=== PATIENT | male | born 1975 | race American Indian/Alaskan Native ===

== ENCOUNTER → 2017-06-29 | Outpatient (CLI) | payer MEDICARE | LOC: SLR 11:00 | PROVIDERS: ATTEND Nurse Practitioner Family | DX: G47.33 Obstructive sleep apnea (adult) (pediatric) (principal); I10 Essential (primary) hypertension; J44.9 Chronic obstructive pulmonary disease, unspecified | CPT/HCPCS: 95811 ==

== ENCOUNTER 2021-09-30 16:06 | Emergency (ER) | payer MEDICARE ==
[2021-09-30 17:31] VITALS: BP 174/100
--- NOTE | 2021-09-30 17:55 | Cat Scan Report ---
CT ABDOMEN AND PELVIS WITHOUT CONTRAST INDICATION / CLINICAL INFORMATION: abdominal pain. TECHNIQUE: Axial CT images were obtained through the abdomen and pelvis without IV contrast. All CT scans at this location are performed using CT dose reduction for ALARA by means of automated exposure control. COMPARISON: None available. FINDINGS: LOWER CHEST: Mild basilar atelectasis/scarring. LIVER: No significant abnormality. GALLBLADDER: No significant abnormality. BILE DUCTS: No significant abnormality. PANCREAS: No significant abnormality. SPLEEN: No significant abnormality. ADRENALS: No significant abnormality. RIGHT KIDNEY / URETER: Mild chronic adjacent inflammation. LEFT KIDNEY / URETER: Mild chronic adjacent inflammation. STOMACH / SMALL BOWEL: No significant abnormality. COLON: No significant abnormality. APPENDIX: No significant abnormality. PERITONEUM: No free fluid. No free air. No fluid collection. LYMPH NODES: No significant adenopathy. VASCULAR STRUCTURES: No significant abnormality. URINARY BLADDER: No significant abnormality. REPRODUCTIVE ORGANS: No significant abnormality. ADDITIONAL FINDINGS: Fat-containing umbilical hernia. Soft tissue anasarca. SKELETAL SYSTEM: No significant abnormality. IMPRESSION: 1. Negative for obstruction or localized inflammation. 2. Soft tissue anasarca. Signer Name: Jacinto Salgado MD Signed: 09/30/2021 5:50 PM Workstation Name: [id number]
--- NOTE | 2021-09-30 21:51 | Emergency Department Report ---
ED Abdominal Pain HPI - General Chief Complaint: Abdominal Pain Stated Complaint: ABDOMIANL PAIN Time Seen by Provider: 09/30/21 16:49 Source: EMS Mode of arrival: Ambulatory Limitations: No Limitations - History of Present Illness Initial Comments: 46-year-old patient with past medical history of hypertension diabetes hernia paranoid schizophrenia anxiety and depression presents to the emergency department for evaluation of 2-week history of abdominal pain. He states that he has a known history of a hernia but feels like it is poking out more than usual and giving him more pain. He denies nausea, vomiting, diarrhea, and fever. He does states that pain at its worst is 9 out of 10. Of note, upon entry into the room patient's first statement was that he was now homeless and needed a referral for supportive living. MD Complaint: abdominal pain -: Gradual, week(s) (2) Location: diffuse Radiation: none Severity: severe Severity scale (0 -10): 9 Quality: aching Associated Symptoms: denies: nausea, vomiting, diarrhea, fever, chills, constipation, dysuria, hematemesis, hematochezia, melena, hematuria - Related Data Home Medications Medication Instructions Recorded Confirmed Last Taken lisinopriL [Zestril TAB] 10 mg PO DAILY 01/05/16 03/08/16 03/08/16 traZODone [Desyrel] 100 mg PO QHS 03/08/16 03/08/16 Unknown Previous Rx's Medication Instructions Recorded Last Taken Type Gemfibrozil [Lopid] 600 mg PO DAILY #60 tablet 03/09/16 Unknown Rx Metformin HCl [Glucophage] 500 mg PO BID #90 tablet 03/09/16 Unknown Rx Paliperidone [Invega] 3 mg PO DAILY #30 tab.er.24 03/09/16 Unknown Rx fluPHENAZine HCl [fluPHENAZine] 10 mg PO DAILY #30 tablet 03/09/16 Unknown Rx Allergies Allergy/AdvReac Type Severity Reaction Status Date / Time chlorpromazine HCl Allergy Itching Verified 03/08/16 21:55 [From Thorazine] ED Review of Systems ROS: Stated complaint: ABDOMIANL PAIN Other details as noted in HPI Comment: All other systems reviewed and negative Constitutional: denies: chills, diaphoresis, fever Eyes: denies: eye pain, eye discharge ENT: denies: ear pain, throat pain, dental pain Respiratory: denies: cough, orthopnea, shortness of breath, SOB with exertion Cardiovascular: denies: chest pain, palpitations, dyspnea on exertion, orthopnea, edema, syncope Gastrointestinal: abdominal pain. denies: nausea, vomiting, diarrhea, constipation, hematemesis, melena, hematochezia Genitourinary: denies: urgency, dysuria, frequency, hematuria, discharge, testicular pain Musculoskeletal: denies: back pain, joint swelling, arthralgia, myalgia Skin: denies: rash, lesions Neurological: denies: headache, weakness, numbness, paresthesias, abnormal gait Psychiatric: denies: anxiety, depression Hematological/Lymphatic: denies: easy bleeding, easy bruising ED Past Medical Hx - Past Medical History Hx Hypertension: Yes Hx Diabetes: Yes Hx Psychiatric Treatment: Yes (schziphrenia/ADHD) Additional medical history: high chol - Social History Smoking Status: Current Every Day Smoker (1/3 pack per day) Substance Use Type: None - Medications Home Medications: Home Medications Medication Instructions Recorded Confirmed Last Taken Type lisinopriL [Zestril TAB] 10 mg PO DAILY 01/05/16 03/08/16 03/08/16 History traZODone [Desyrel] 100 mg PO QHS 03/08/16 03/08/16 Unknown History Gemfibrozil [Lopid] 600 mg PO DAILY #60 tablet 03/09/16 Unknown Rx Metformin HCl [Glucophage] 500 mg PO BID #90 tablet 03/09/16 Unknown Rx Paliperidone [Invega] 3 mg PO DAILY #30 tab.er.24 03/09/16 Unknown Rx fluPHENAZine HCl [fluPHENAZine] 10 mg PO DAILY #30 tablet 03/09/16 Unknown Rx ED Physical Exam - General Limitations: No Limitations General appearance: alert, in no apparent distress - Head Head exam: Present: atraumatic, normocephalic - Eye Eye exam: Present: normal appearance. Absent: conjunctival injection - Neck Neck exam: Present: normal inspection. Absent: tenderness - Respiratory Respiratory exam: Present: normal lung sounds bilaterally. Absent: respiratory distress, wheezes, rales, rhonchi, stridor, chest wall tenderness, accessory muscle use, decreased breath sounds - Cardiovascular Cardiovascular Exam: Present: regular rate, normal heart sounds - GI/Abdominal GI/Abdominal exam: Present: soft, tenderness, normal bowel sounds. Absent: distended, guarding (Generalized), rebound, rigid - Back Exam Back exam: Present: normal inspection, full ROM - Neurological Exam Neurological exam: Present: alert, oriented X3 - Psychiatric Psychiatric exam: Present: normal affect, normal mood - Skin Skin exam: Present: warm, dry, intact, normal color ED Course Vital Signs 09/30/21 17:29 Temperature 98.8 F Pulse Rate 74 Respiratory 14 Rate Blood Pressure 174/100 [Left] O2 Sat by Pulse 96 Oximetry ED Medical Decision Making - Radiology Data Radiology results: report reviewed CT abdomen pelvis without contrast IMPRESSION: 1. Negative for obstruction or localized inflammation. 2. Soft tissue anasarca. - Medical Decision Making 46-year-old patient with past medical history of hypertension diabetes hernia paranoid schizophrenia anxiety and depression presents to the emergency department for evaluation of 2-week history of abdominal pain. He states that he has a known history of a hernia but feels like it is poking out more than usual and giving him more pain. He denies nausea, vomiting, diarrhea, and fever. He does states that pain at its worst is 9 out of 10. Of note, upon entry into the room patient's first statement was that he was now homeless and needed a referral for supportive living. Patient had CT of abdomen and pelvis completed, but after he found out that there was no case management on duty at this time patient was unable to be located for blood, urine, or completion of care. Patient was seen walking out the door. Critical care attestation.: If time is entered above; I have spent that time in minutes in the direct care of this critically ill patient, excluding procedure time. ED Disposition Clinical Impression: Abdominal pain Qualifiers: Abdominal location: generalized Qualified Code(s): R10.84 - Generalized abdominal pain Disposition: 07 LEFT AWOL/ELOPED Is pt being admited?: No Condition: Undetermined Referrals: PRIMARY CARE, [Primary Care Provider] - 3-5 Days
[2021-09-30 23:55] LABS: Bilirubin,Urine NEG (Negative); Blood,Urine NEG (Negative); Color,Urine Yellow (Yellow); Mucus,Urine FEW /HPF; Urobilinogen,Urine < 2.0 mg/dL (<2.0)
[2021-10-01] LABS: Protein,Urine >500 mg/dL (Negative); RBC,Urine < 1.0 /HPF (0.0-6.0)
== END 2021-10-01 05:00 | disposition left against medical advice (07) ==
LOC: ED 16:06
DX: R10.9 Unspecified abdominal pain (principal); I10 Essential (primary) hypertension; E11.8 Type 2 diabetes mellitus with unspecified complications; F17.200 Nicotine dependence, unspecified, uncomplicated
CPT/HCPCS: 36415; 74176; 81001; 99284